=== PATIENT | female | born 1940 | race Caucasian/White ===

== ENCOUNTER 2016-05-01 21:10 | Emergency (ER) | payer OTHER, MEDICARE, MEDICAID ==
[~2016-05-01] VITALS: Ht 160 cm; Wt 47.2 kg
[~2016-05-01 21:10] MED LIST: ACET325T38 PO; AMLO5TAB2 PO; BUSP10TA95 PO; CIPR500T78 PO; FAMO-119 PO; FOLI1TAB24 PO; GUAI10SY4 PO; IBUP-1773 PO; IRON1CAP11 PO; LEVE500T PO; LOPE2CAP PO; MAGN-47 PO; MTP50T PO; NFR150C PO; NITR-65 PO; OMEP-10 PO; OMEP40CA36 PO; QUET25TA33 PO; SENN1TAB8 PO; SERT25TA PO; TEMA30CA PO; TEMAZEPAM; TRAZ150T42 PO; [UNRECOGNIZED DRUG - CODE] PO; amlodipine; buspar; keppra; metoprolol; quetiapine; tylenol
--- NOTE | 2016-05-01 21:47 | Diagnostic Imaging Report ---
Procedure: CT head and CT cervical spine without contrast. Technique: Multiple contiguous axial images were obtained through the brain and cervical spine without the use of intravenous contrast. Sagittal and coronal reformations through the cervical spine were then performed. Indication: Fall with head and neck pain. Comparison: 01/31/2016 and 07/18/2014. Discussion: CT head: No adverse interval change. Diffuse brain volume loss is stable. White matter hypoattenuation is nonspecific though not greater than expected for age related chronic small vessel ischemic disease, stable. Chronic encephalomalacia within the left parietal lobe is stable. No acute intracranial hemorrhage, mass, midline shift or hydrocephalus. The visualized orbits, paranasal sinuses, mastoid air cells and calvarium are unremarkable. CT cervical spine: Moderate degenerative changes are noted throughout the cervical spine. No acute fracture or subluxation. Paraspinal soft tissues are unremarkable. Overall appearance is stable from previous exam. Impression: 1. Senescent changes as described. No acute intracranial abnormality otherwise identified. 2. Stable degenerative changes of the cervical spine. No acute osseous abnormality identified. Dictated by: Dictated on workstation # [id number]
--- NOTE | 2016-05-01 21:57 | Diagnostic Imaging Report ---
Indication: Right shoulder pain. Discussion: Three views of the right shoulder were obtained, comparison 07/09/2013. 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 The humeral head is irregular and diffusely heterogenous which appears chronic. No acute osseous abnormality identified. No unexpected radiopaque foreign body. Soft tissues are unremarkable. Impression: Chronic ununited right humeral neck fracture. Dictated by: Dictated on workstation # [id number]
--- NOTE | 2016-05-01 21:58 | Diagnostic Imaging Report ---
Indication: Right arm pain. Discussion: Two views of the right humerus were obtained, comparison 07/09/2013. Chronic ununited right humeral neck fracture is noted. Marked heterogeneity and irregularity of the humeral head appears chronic. Bones are diffusely osteopenic. No acute fracture identified. Soft tissues are unremarkable. Impression: 1. Chronic ununited right humeral neck fracture. Dictated by: Dictated on workstation # [id number]
--- NOTE | 2016-05-01 22:38 | ED Fall/Injury ---
General Chief Complaint: Upper Extremity Stated Complaint: FALL Nursing Triage Note: Pt to ED via [facility] from [facility]. Pt resides on alzheimer's unit at facility. Staff reported to EMS that pt fell earlier today and they have noted swelling to shoulder. Upon initial exam, deformity noted to R shoulder and will not move R arm. Bruising also noted to pt's R restorationism and slight swelling noted under pt's L eye. Pt alert to person and place upon arrival to ED. Pt denies pain. Source: patient Exam Limitations: clinical condition (advanced dementia) History of Present Illness Time seen by provider: 22:00 Initial Comments Patient's here by EMS with report of fall earlier today and noted to have deformity of the right shoulder region. Bruising also noted to the right temporal region. Patient denies any significant pain currently. She is unreliable historian due to advanced dementia but does not appear to be in any distress. Occurred: this evening Severity: mild Injuries/Pain Location: head, upper extremity Context: unknown Loss of Consciousness: no loss of consciousness Associated Symptoms (Fall): No Chest Pain, Confusion (chronic)No Nausea/ Vomiting, No Shortness of Air Allergies and Home Medications Allergies Coded Allergies: No Known Drug Allergies (Unverified , 04/30/14) Home Medications Acetaminophen 325 Mg Tablet 325 MG PO Q4H PRN PRN PAIN (Reported) Buspirone Hcl 10 Mg Tab 10 MG PO TID (Reported) Ciprofloxacin HCl 500 Mg Tablet 5Days 500 MG PO BID Prescribed by: ROSEANN WOODS on 08/09/14 1048 Famotidine 20 Mg Tablet 20 MG PO BID (Reported) Folic Acid 1 Mg Tablet 1 MG PO DAILY (Reported) Lactase 9,000 Unit Tab.chew 1 TAB PO DAILY (Reported) Levetiracetam 500 Mg Tab 500 MG PO BID (Reported) Loperamide Hcl 2 Mg Capsule PO UD PRN PRN DIARRHEA (Reported) 2 CAPS INITIALLY, THEN 1 CAP AFTER EACH LOOSE STOOL. NOT TO EXCEED 8 CAPS/24 HRS. Metoprolol Tartrate 50 Mg Tablet 50 MG PO BID (Reported) Quetiapine Fumarate 25 Mg Tablet 25 MG PO HS (Reported) Sertraline Hcl 25 Mg Tablet 25 MG PO DAILY (Reported) Trazodone Hcl 150 Mg Tablet 150 MG PO HS (Reported) Constitutional: see HPI Eyes: See HPI Ears, Nose, Mouth, Throat: no symptoms reported Respiratory: no symptoms reported Cardiovascular: no symptoms reported Musculoskeletal: see HPI joint swelling (right shoulder)No muscle pain Skin: see HPI change in colorNo lesions Other Unable to complete review of systems due to underlying baseline dementia and poor historian. Past Bphctqz-Appxli-Duedqz Hx Patient Social History Alcohol Use: Denies Use Recreational Drug Use: No Smoking Status: Unknown if Ever Smoked Former Smoker/When Quit: Aug 07, 2002 Recent Foreign Travel: No Contact w/Someone Who Travel: No Recent Infectious Disease Expo: No Recent Hopitalizations: No Immunizations Up To Date Tetanus Booster (TDap): Unknown Date of Pneumonia Vaccine: Jul 20, 2013 Date of Influenza Vaccine: Nov 17, 2013 Seasonal Allergies Seasonal Allergies: No Surgeries HX Surgeries: Yes (pt unable to verbalize at this time) Surgeries: Abdominal Respiratory Hx Respiratory Disorders: Yes Respiratory Disorders: Asthma Cardiovascular Hx Cardiac Disorders: Yes Cardiac Disorders: Hypertension, Syncope Neurological Hx Neurological Disorders: Yes (BEATINGS-BRAIN INJURY, CONVUSIONS) Neurological Disorders: Concussion, Dementia, Traumatic Brain Injury Reproductive System Hx Reproductive Disorders: No Sexually Transmitted Disease: No HIV/AIDS: No Female Reproductive Disorders: Denies 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 Genitourinary Hx Genitourinary Disorders: Yes Genitourinary Disorders: Kidney Infection, UTI-Chronic Gastrointestinal Hx Gastrointestinal Disorders: Yes Gastrointestinal Disorders: Gastroesophageal Reflux, Obstructive Bowel, Chronic Constipation, Gall Bladder Disease Musculoskeletal Hx Musculoskeletal Disorders: Yes Musculoskeletal Disorders: Fractures (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.) Endocrine Hx Endocrine Disorders: No HEENT HX ENT Disorders: No Cancer Hx Cancer: No Psychosocial Hx Psychiatric Problems: Yes (DEMENTIA WITH BEHAVIOR DISORDER) Behavioral Health Disorders: Sleep Difficulties, Anxiety, Depression Integumentary HX Skin/Integumentary Disorder: No Blood Transfusions Hx Blood Disorders: Yes (ANEMIA) Adverse Reaction to a Blood Tr: No Reviewed Nursing Assessment Reviewed/Agree w Nursing PMH: Yes Family Medical History Family Medial History: Colon cancer 19 MOTHER Diabetes mellitus 19 MOTHER Myocardial infarction 19 MOTHER (HTN, ANYERUS,M) Physical Exam Vital Signs Vital Sign - Last 12Hours 05/01/16 21:18 Temp 97.7 Pulse 56 Resp 18 B/P 180/89 Pulse Ox 96 O2 Delivery Room Air Capillary Refill : Less Than 3 Seconds General Appearance: WD/WN no apparent distress HEENT: PERRL/EOMI pharynx normal Neck: full range of motion supple Cardiovascular: regular rate, rhythm no murmur Respiratory: lungs clear normal breath sounds Gastrointestinal: non tender soft Back: normal inspection no CVA tenderness no vertebral tenderness Extremities: non-tender normal inspection other (question of swelling to the area of the right shoulder were the nonunion fracture is. She is not specifically tender there on exam and distal movements are intact without pain.) Neurologic/Psychiatric: alert normal mood/affect Skin: warm/dry ecchymosis (bruising to the right restorationism area.) [place] Coma Score Best Eye Response: (4) Open Spontaneously Best Verbal Response: (4) Confused Conversation Best Motor Response: (6) Obeys Commands Progress/Results/Core Measures Results/Orders My Orders Orders-CECY MAXWELL MD Shoulder, Right, 3 Views (05/01/16 21:22) Humerus, Right, 2 Views (05/01/16 21:22) Ct Head/Cervical Spine Wo (05/01/16 21:22) Fentanyl Injection (Sublimaze Injection (05/01/16 22:44) Fentanyl Injection (Sublimaze Injection (05/01/16 22:54) Vital Signs/I&O Vital Sign - Last 12Hours 05/01/16 21:18 Temp 97.7 Pulse 56 Resp 18 B/P 180/89 Pulse Ox 96 O2 Delivery Room Air Blood Pressure Mean: 119 Progress Note : Progress Note Seen and evaluated. CT head and neck ordered. X-ray right shoulder and humerus ordered. Chronic nonunion noted. No other acute findings. Fentanyl 25 g IM for pain. Discharged home with return precautions. Facility verbalize understanding instructions and agreement with plan. Diagnostic Imaging Diagonstic Imaging: CT Plain Films/CT/US/NM/MRI: c-spine, head Comments NAME: ROSALIO DONALD [facility] REC#: [id number] PT STATUS: REG ER : 1940 PHYSICIAN: CECY MAXWELL MD ADMIT DATE: 05/01/16/ER Signed Date of Exam: 05/01/16 CT HEAD/CERVICAL SPINE WO Procedure: CT head and CT cervical spine without contrast. Technique: Multiple contiguous axial images were obtained through the brain and cervical spine without the use of intravenous contrast. Sagittal and coronal reformations through the cervical spine were then performed. Indication: Fall with head and neck pain. Comparison: 01/31/2016 and 07/18/2014. Discussion: CT head: No adverse interval change. Diffuse brain volume loss is stable. White matter hypoattenuation is nonspecific though not greater than expected for age related chronic small vessel ischemic disease, stable. Chronic encephalomalacia within the left parietal lobe is stable. No acute intracranial hemorrhage, mass, midline shift or hydrocephalus. The visualized orbits, paranasal sinuses, mastoid air cells and calvarium are unremarkable. CT cervical spine: Moderate degenerative changes are noted throughout the cervical spine. No acute fracture or subluxation. Paraspinal soft tissues are unremarkable. Overall appearance is stable from previous exam. Impression: 1. Senescent changes as described. No acute intracranial abnormality otherwise identified. 2. Stable degenerative changes of the cervical spine. No acute osseous abnormality identified. Dictated by: Dictated on workstation # [id number] Dict: 05/01/162141 Trans: 05/01/162204 [facility] [id number] Interpreted by: ROSEANN CHAVEZ MD Electronically signed by:ROSEANN CHAVEZ MD 05/01/162206 Diagonstic Imaging: Xray Plain Films/CT/US/NM/MRI: other (right shoulder) Comments NAME: ROSALIO DONALD [facility] REC#: [id number] PT STATUS: REG ER : 1940 PHYSICIAN: CECY MAXWELL MD ADMIT DATE: 05/01/16/ER Signed Date of Exam: 05/01/16 SHOULDER, RIGHT, 3 VIEWS Indication: Right shoulder pain. Discussion: Three views of the right shoulder were obtained, comparison 07/09/2013. 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 The humeral head is irregular and diffusely heterogenous which appears chronic. No acute osseous abnormality identified. No unexpected radiopaque foreign body. Soft tissues are unremarkable. Impression: Chronic ununited right humeral neck fracture. Dictated by: Dictated on workstation # [id number] Dict: 05/01/162151 Trans: 05/01/162204 [facility] [id number] Interpreted by: ROSEANN CHAVEZ MD Electronically signed by:ROSEANN CHAVEZ MD 05/01/162206 Diagonstic Imaging: Xray Plain Films/CT/US/NM/MRI: other (right humerus) Comments NAME: ROSALIO DONALD [facility] REC#: [id number] PT STATUS: REG ER : 1940 PHYSICIAN: CECY MAXWELL MD ADMIT DATE: 05/01/16/ER Signed Date of Exam: 05/01/16 HUMERUS, RIGHT, 2 VIEWS Indication: Right arm pain. Discussion: Two views of the right humerus were obtained, comparison 07/09/2013. Chronic ununited right humeral neck fracture is noted. Marked heterogeneity and irregularity of the humeral head appears chronic. Bones are diffusely osteopenic. No acute fracture identified. Soft tissues are unremarkable. Impression: 1. Chronic ununited right humeral neck fracture. 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 Decision time for Depature: 22:56 Referrals: ROSEANN WOODS MD (PCP/Family) Primary Care Physician Patient Instructions: Shoulder Pain (DC) Add. Discharge Instructions: All discharge instructions reviewed with patient and/or family. Voiced understanding. 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 There are no acute changes currently. Follow-up with your DrTamiko in a few days for recheck as needed. Continue home medications as needed. Return for worse pain, swelling, weakness, breathing problems or other concerns as needed. CECY MAXWELL MD May 01, 2016 22:38
[2016-05-01] MEDS ORDERED: fentaNYL INJECTION 100 MCG/2 ML AMP IVP STA (22:44)
[2016-05-01] MEDS ORDERED: fentaNYL INJECTION 100 MCG/2 ML AMP IM STA (22:54)
[2016-05-01 23:08] VITALS: BP 132/101
== END 2016-05-01 23:08 ==
LOC: EDUNIT# 21:10 → ER 21:11
DX: S00.03XA Contusion of scalp, initial encounter (principal); S42.291K Other displaced fracture of upper end of right humerus, subsequent encounter for fracture with nonunion; M47.812 Spondylosis without myelopathy or radiculopathy, cervical region; G30.9 Alzheimer's disease, unspecified; F02.80 Dementia in other diseases classified elsewhere, unspecified severity, without behavioral disturbance, psychotic disturbance, mood disturbance, and anxiety; Z79.899 Other long term (current) drug therapy; W19.XXXA Unspecified fall, initial encounter; Y92.129 Unspecified place in nursing home as the place of occurrence of the external cause; Y99.8 Other external cause status
CPT/HCPCS: 70450; 72125; 73030; 73060; 96372; 99283